=== PATIENT | female | born 1970 | race Caucasian/White ===

== ENCOUNTER 2017-12-20 14:12 | Emergency (ER) | payer MEDICAID ==
[2017-12-20] MEDS ORDERED: Lidocaine 1% 20 ML MDV INJECT ONE (14:58)
--- NOTE | 2017-12-20 14:59 | EDM.PDOC ---
ED HPI GENERAL MEDICAL PROBLEM - General Chief Complaint: Laceration Stated Complaint: LEFT POINTER FINGER CUT Time Seen by Provider: 12/20/17 14:41 Source of Information: Reports: Patient History Limitations: Reports: No Limitations - History of Present Illness INITIAL COMMENTS - FREE TEXT/NARRATIVE: History of present illness: []Patient was cutting a bag of turkey and sliced her left finger. She felt it cut down to the bone. Review of systems: As per history of present illness and below otherwise all systems reviewed and negative. Past medical history: As per history of present illness and as reviewed below otherwise noncontributory. Surgical history: As per history of present illness and as reviewed below otherwise noncontributory. Social history: No reported history of drug or alcohol abuse. Family history: As per history of present illness and as reviewed below otherwise noncontributory. Physical exam: General: Well developed, well nourished in NAD HEENT: Atraumatic, normocephalic, pupils reactive, negative for conjunctival pallor or scleral icterus, mucous membranes moist, throat clear, neck supple, nontender, trachea midline. Lungs: Clear to auscultation, breath sounds equal bilaterally, chest nontender. Heart: S1S2, regular, negative for clicks, rubs, or JVD. Abdomen: Soft, nondistended, nontender. Negative for masses or hepatosplenomegaly. Negative for costovertebral tenderness. Pelvis: Stable nontender. Genitourinary: Deferred. Rectal: Deferred. Extremities: Left dorsal index finger with laceration approximately 4 cm crossing to joints, negative for cords or calf pain. Neurovascular unremarkable. Neuro: Awake, alert, oriented. Cranial nerves II through XII unremarkable. Cerebellum unremarkable. Motor and sensory unremarkable throughout. Exam nonfocal. Diagnostics: []X-ray negative for fracture Therapeutics: []Tetanus updated, wounds sutured Impression: []Left index finger laceration Plan: []Sutures out in 10 days, Tylenol Motrin for pain where splint for 1 week return if symptoms worsen or change. Definitive disposition and diagnosis as appropriate pending reevaluation and review of above. Left 2-Index finger Pain Score (Numeric/FACES): 8 - Related Data Allergies Allergy/AdvReac Type Severity Reaction Status Date / Time azithromycin [From Zithromax] Allergy Other Verified 12/20/17 14:54 Home Meds: Home Meds . [No Known Home Meds] 12/20/17 [History] ED ROS GENERAL - Review of Systems Review Of Systems: See Below (See history of present illness) ED EXAM, SKIN/RASH Exam: See Below (See history of present illness) ED SKIN PROCEDURES - Laceration/Wound Repair Left Finger Lac/Wound length In cm: 4 Appearance: Subcutaneous Distal NVT: Neuro & Vascular Intact Anesthetic Type: Digital Local Anesthesia - Lidocaine (Xylocaine): 0.5% Plain Local Anesthesia - Bupivicaine (Marcaine): 0.5% Plain Local Anesthetic Volume: 3cc Exploration/Debridement/Repair: Wound Explored Closed with: Sutures Suture Size: other (5.0) # of Sutures: 7 Suture Type: Nylon Drain Placement: No Sterile Dressing Applied: Nurse Tetanus Status Addressed: Yes Complications: No Course - Vital Signs Last Recorded V/S: Last Vital Signs Temp 97.9 F 12/20/17 14:55 Pulse 66 12/20/17 14:55 Resp 18 12/20/17 14:55 BP 135/96 H 12/20/17 14:55 Pulse Ox 96 12/20/17 14:55 - Orders/Labs/Meds Orders: Active Orders 24 hr Category Date Time Status Vaccines to be Administered [RC] PER UNIT ROUTINE Care 12/20/17 15:01 Active Fingers Second Digit Lt F1 [CR] Stat Exams 12/20/17 15:04 Taken Meds: Medications Discontinued Medications Generic Name Dose Route Start Last Admin Trade Name Freq PRN Reason Stop Dose Admin Bupivacaine HCl 10 ml 12/20/17 15:00 Sensorcaine-Mpf 0.5% INJECT 12/20/17 15:01 ONETIME ONE Diphtheria/Tetanus/Acell Pertussis 0.5 ml 12/20/17 15:01 12/20/17 15:15 Adacel IM 12/20/17 15:02 0.5 ml .ONCE ONE Administration Lidocaine HCl 20 ml 12/20/17 14:58 Xylocaine 1% INJECT 12/20/17 14:59 ONETIME ONE Departure - Departure Time of Disposition: 15:56 Disposition: Home, Self-Care 01 Condition: Good Clinical Impression: Laceration of left index finger Qualifiers: Encounter type: initial encounter Damage to nail status: without damage Foreign body presence: without foreign body Qualified Code(s): S61.211A - Laceration without foreign body of left index finger without damage to nail, initial encounter - Discharge Information Referrals: Salo Weinberg MD [Primary Care Provider] - Forms: ED Department Discharge Additional Instructions: The following information is given to patients seen in the emergency department who are being discharged to home. This information is to outline your options for follow-up care. We provide all patients seen in our emergency department with a follow-up referral. The need for follow-up, as well as the timing and circumstances, are variable depending upon the specifics of your emergency department visit. If you don't have a primary care physician on staff, we will provide you with a referral. We always advise you to contact your personal physician following an emergency department visit to inform them of the circumstance of the visit and for follow-up with them and/or the need for any referrals to a consulting specialist. The emergency department will also refer you to a specialist when appropriate. This referral assures that you have the opportunity for follow-up care with a specialist. All of these measure are taken in an effort to provide you with optimal care, which includes your follow-up. Under all circumstances we always encourage you to contact your private physician who remains a resource for coordinating your care. When calling for follow-up care, please make the office aware that this follow-up is from your recent emergency room visit. If for any reason you are refused follow-up, please contact the [facility] Emergency Department at and asked to speak to the emergency department charge nurse. Sutures out in 7-10 days follow-up with regular physician as needed return if any redness, drainage or increased pain or fevers occur. [facility] [address] [place] [id number] - My Orders Last 24 Hours: My Active Orders 12/20/17 15:01 Vaccines to be Administered [RC] PER UNIT ROUTINE 12/20/17 15:04 Fingers Second Digit Lt F1 [CR] Stat - Assessment/Plan Last 24 Hours: My Active Orders 12/20/17 15:01 Vaccines to be Administered [RC] PER UNIT ROUTINE 12/20/17 15:04 Fingers Second Digit Lt F1 [CR] Stat
[2017-12-20] MEDS ORDERED: Bupivacaine 0.5% 10 ML SDV INJECT ONE (15:00)
[2017-12-20] MEDS ORDERED: Diphtheria,Pertussis(Acell),Tetanus Vaccine 0.5 ML Syringe IM ONE (15:01)
[2017-12-20] MEDS ORDERED: Bacitracin Oint 1 GM U/D Packet ONE (16:00)
[2017-12-20] MEDS ORDERED: Bacitracin Oint 1 GM U/D Packet TOP ONE (16:06)
--- NOTE | 2017-12-21 13:33 | CR ---
EXAM DATE: 12/20/17 PATIENT'S AGE: 47 Patient: PATRICIO LEE Facility: [place], [place] : 1970 Study: XRay Extremity Left 2nd digit [id number] 3:28:28 PM Ordering Physician: Karan Betancourt Final Report: INDICATION: Second digit. TECHNIQUE: Three views left index finger. FINDINGS: Moderate soft tissue swelling left index finger. Soft tissue deformity dorsal distal aspect of the left index finger likely the site of laceration. No opaque foreign body. No fracture or dislocation. Degenerative arthritis visualized left hand and wrist. Tiny chronic ossific densities along the radial aspect of the left 2nd PIP joint. Remainder negative. Dictated by Rm Briseno MD @ Dec 20 2017 3:30PM Signed by: Rm Briseno @ 12/20/2017 3:33:54 PM (Electronic Signature) ----ADDENDUM---- INDICATION: Cut to second digit. ZHANG Santos/constanza @ 3:48 p.m. on 12/20/2017 (Electronic Signature) Report Signed by Proxy. KELLY
== END 2017-12-20 16:10 | disposition home or self-care (01) ==
LOC: MW.ED 14:12
DX: S61.211A Laceration without foreign body of left index finger without damage to nail, initial encounter (principal); Z88.1 Allergy status to other antibiotic agents; Z23 Encounter for immunization; W45.8XXA Other foreign body or object entering through skin, initial encounter
CPT/HCPCS: 12002; 73140-26-F1; 73140-F1; 90471; 90715; 99282; 99283-25

== ENCOUNTER 2018-04-08 23:39 | Emergency (ER) | payer MEDICAID ==
[2018-04-08] MEDS ORDERED: Ketorolac 60 MG/2 ML SDV IM ONE (23:52)
[2018-04-08] MEDS ORDERED: LORazepam 1 MG Tab PO ONE (23:53)
[2018-04-08] MEDS ORDERED: Ondansetron 4 MG Tab.DIS PO ONE (23:53)
--- NOTE | 2018-04-09 00:25 | EDM.PDOC ---
ED HPI GENERAL MEDICAL PROBLEM - General Chief Complaint: General Stated Complaint: HEADACHE Time Seen by Provider: 04/08/18 23:46 Source of Information: Reports: Patient History Limitations: Reports: No Limitations - History of Present Illness INITIAL COMMENTS - FREE TEXT/NARRATIVE: HISTORY AND PHYSICAL: History of present illness: 39-year-old female presented to emergency department with chief complaint of anxiety starting today at 10:30 AM with associated headache. Patient states she has a history of anxiety and this morning at 10:30 began to have increasing anxiety. States that when she gets really bad anxiety she also gets a headache. She states that it is not a migraine and is not thunderclap. She denies any altered mental status associated with the headache. Initial neuro exam is nonfocal. She currently denies any chest pain, palpitations, shortness breath, syncopal episodes, or focal neurologic deficits. Review of systems: As per history of present illness and below otherwise all systems reviewed and negative. Past medical history: As per history of present illness and as reviewed below otherwise noncontributory. Surgical history: As per history of present illness and as reviewed below otherwise noncontributory. Social history: No reported history of drug or alcohol abuse. Family history: As per history of present illness and as reviewed below otherwise noncontributory. Physical exam: HEENT: Atraumatic, normocephalic, pupils reactive, negative for conjunctival pallor or scleral icterus, mucous membranes moist, throat clear, neck supple, nontender, trachea midline. Lungs: Clear to auscultation, breath sounds equal bilaterally, chest nontender. Heart: S1S2, regular, negative for clicks, rubs, or JVD. Abdomen: Soft, nondistended, nontender. Negative for masses or hepatosplenomegaly. Negative for costovertebral tenderness. Pelvis: Stable nontender. Genitourinary: Deferred. Rectal: Deferred. Extremities: Atraumatic, negative for cords or calf pain. Neurovascular unremarkable. Neuro: Awake, alert, oriented. Cranial nerves II through XII unremarkable. Cerebellum unremarkable. Motor and sensory unremarkable throughout. Exam nonfocal. Diagnostics: Therapeutics: 1 mg Ativan by mouth, Impression: Anxiety attack tension headache Plan: Patient was given 1 mg Ativan which seemed to improve her anxiety and headache. After giving the medication she wished for no further testing and be discharged back home so she can go to bed. As above exam was benign with no focal deficits. Her symptoms are most likely related to anxiety attack which she has a history of. She was discharged in good condition with instructions to follow- up with her primary care provider. She was also told to return to emergency department if she had any new or worsening symptoms. Patient was not given Toradol secondary to her stating that she was allergic to it. Definitive disposition and diagnosis as appropriate pending reevaluation and review of above. head Pain Score (Numeric/FACES): 10 - Related Data Allergies Allergy/AdvReac Type Severity Reaction Status Date / Time acetaminophen [From Vicodin] Allergy Hives Verified 04/08/18 23:54 azithromycin [From Zithromax] Allergy Itching Verified 04/08/18 23:53 codeine Allergy Hives Verified 04/08/18 23:54 erythromycin base Allergy Rash Verified 04/08/18 23:54 hydrocodone [From Vicodin] Allergy Hives Verified 04/08/18 23:54 lamotrigine [From Lamictal] Allergy Other Verified 04/08/18 23:54 morphine Allergy Hives Verified 04/08/18 23:54 Home Meds: Home Meds . [No Known Home Meds] 12/20/17 [History] Past Medical History - Past Health History Medical/Surgical History: Denies Medical/Surgical History [employer] History: Reports: , Other (See Below) Other [employer] History: Breast sx Musculoskeletal History: Reports: Back Pain, Chronic - Infectious Disease History Infectious Disease History: Reports: Hepatitis C - Past Surgical History Female Surgical History: Reports: Section Musculoskeletal Surgical History: Reports: Other (See Below) Other Musculoskeletal Surgeries/Procedures:: back sx Social & Family History - Family History Family Medical History: Noncontributory - Tobacco Use Smoking Status *Q: Current Every Day Smoker Years of Tobacco use: 39 Packs/Tins Daily: 1 - Caffeine Use Caffeine Use: Reports: Other - Recreational Drug Use Recreational Drug Use: Yes Drug Use in Last 12 Months: Yes Recreational Drug Type: Reports: Marijuana/Hashish Recreational Drug Use Frequency: Socially ED ROS GENERAL - Review of Systems Review Of Systems: ROS reveals no pertinent complaints other than HPI. ED EXAM, GENERAL - Physical Exam Exam: See Below Course - Vital Signs Last Recorded V/S: Last Vital Signs Temp 96.1 F 04/08/18 23:39 Pulse 72 04/08/18 23:39 Resp 28 H 04/08/18 23:39 BP 145/88 H 04/08/18 23:39 Pulse Ox 96 04/08/18 23:39 - Orders/Labs/Meds Meds: Medications Discontinued Medications Generic Name Dose Route Start Last Admin Trade Name Alex PRN Reason Stop Dose Admin Ketorolac Tromethamine 60 mg 04/08/18 23:52 04/09/18 00:11 Toradol IM 04/08/18 23:53 Not Given ONETIME ONE Lorazepam 1 mg 04/08/18 23:53 04/08/18 23:59 Ativan PO 04/08/18 23:54 1 mg ONETIME ONE Administration Ondansetron HCl 4 mg 04/08/18 23:53 04/08/18 23:59 Zofran Odt PO 04/08/18 23:54 4 mg ONETIME ONE Administration Departure - Departure Time of Disposition: 00:42 Disposition: Home, Self-Care 01 Condition: Good Clinical Impression: Anxiety attack - Discharge Information Referrals: PCP,None [Primary Care Provider] - Forms: ED Department Discharge Additional Instructions: My general discharge The following information is given to patients seen in the emergency department who are being discharged to home. This information is to outline your options for follow-up care. We provide all patients seen in our emergency department with a follow-up referral. The need for follow-up, as well as the timing and circumstances, are variable depending upon the specifics of your emergency department visit. If you don't have a primary care physician on staff, we will provide you with a referral. We always advise you to contact your personal physician following an emergency department visit to inform them of the circumstance of the visit and for follow-up with them and/or the need for any referrals to a consulting specialist. The emergency department will also refer you to a specialist when appropriate. This referral assures that you have the opportunity for follow-up care with a specialist. All of these measure are taken in an effort to provide you with optimal care, which includes your follow-up. Under all circumstances we always encourage you to contact your private physician who remains a resource for coordinating your care. When calling for follow-up care, please make the office aware that this follow-up is from your recent emergency room visit. If for any reason you are refused follow-up, please contact the [facility] Emergency Department at and asked to speak to the emergency department charge nurse. [facility] [address] [place] [address] [id number] [address] [address] Follow-up with a primary care provider as we discussed. Return the emergency Department if you have any new or worsening symptoms.
== END 2018-04-09 00:55 | disposition home or self-care (01) ==
LOC: MW.ED 23:39
DX: F41.9 Anxiety disorder, unspecified (principal); G44.209 Tension-type headache, unspecified, not intractable; F17.210 Nicotine dependence, cigarettes, uncomplicated; Z88.1 Allergy status to other antibiotic agents; Z88.5 Allergy status to narcotic agent; Z88.8 Allergy status to other drugs, medicaments and biological substances
CPT/HCPCS: 99283; A9270

== ENCOUNTER 2019-04-22 13:08 | Emergency (ER) | payer MEDICAID, OTHER ==
--- NOTE | 2019-04-22 13:16 | EDM.PDOC ---
ED HPI GENERAL MEDICAL PROBLEM - General Chief Complaint: General Stated Complaint: INJURED ANKLE Time Seen by Provider: 04/22/19 13:13 Source of Information: Reports: Patient History Limitations: Reports: No Limitations - History of Present Illness INITIAL COMMENTS - FREE TEXT/NARRATIVE: HISTORY AND PHYSICAL: History of present illness: Patient is a 48-year-old female who presents to the emergency room with multiple complaints post fall. She states she was walking into coming go when she tripped upwards on the ledge falling on her left elbow and bilateral knees. She denies hitting her head or any LOC. She states she has some mid lumbar back and neck pain, which is concerning to her as she has had previous lumbar spine surgery. He is complaining of left elbow and left ankle pain with soft tissue swelling. She was ambulatory into the emergency room and able to weight bear. Patient denies any fever, chills, headache, change in vision, syncope or near syncope. Denies any chest pain, shortness of breath or cough. Denies any abdominal pain, nausea, vomiting, diarrhea, constipation or dysuria. Patient has been eating and drinking appropriately. Review of systems: As per history of present illness and below otherwise all systems reviewed and negative. Past medical history: As per history of present illness and as reviewed below otherwise noncontributory. Surgical history: As per history of present illness and as reviewed below otherwise noncontributory. Social history: See social history for further information Family history: As per history of present illness and as reviewed below otherwise noncontributory. Physical exam: General: Well-developed and well-nourished 48-year-old female. Alert and oriented. Nontoxic appearing and in no acute distress. HEENT: Atraumatic, normocephalic, pupils equal and reactive bilaterally, negative for conjunctival pallor or scleral icterus, mucous membranes moist, trachea midline. No drooling or trismus noted. No meningeal signs. No hot potato voice noted. Lungs: Clear to auscultation, breath sounds equal bilaterally, chest nontender. Heart: S1S2, regular rate and rhythm without overt murmur Abdomen: Soft, nondistended, nontender. Negative for masses or hepatosplenomegaly. Negative for costovertebral tenderness. Pelvis: Stable nontender. Skin: Intact, warm, dry. No lesions or rashes noted. C-spine/Back: No pinpoint vertebral tenderness upon palpation. No crepitus, step -offs or obvious deformities. Paraspinous muscular tenderness to the left cervical spine and upper lumbar paraspinous muscular tenderness bilaterally. Patient is ambulatory into the emergency room without difficulty or deficit. Able to rock back on heels and walk on toes. Denies any urinary or fecal incontinence. Denies any numbness, tingling or saddle paresthesia. Extremities: Patient is ambulatory into the emergency room. She does complain of tenderness with palpation over the left elbow and left ankle. Minimal soft tissue swelling noted over the left ankle. States she has generalized tenderness throughout while performing my physical examination. Moves all extremities per self without difficulty or deficits, negative for cords or calf pain. Strong distal pulses bilaterally. Capillary refill less than 3 seconds. Neurovascular unremarkable. Neuro: Awake, alert, oriented. Cranial nerves II through XII unremarkable. Cerebellum unremarkable. Motor and sensory unremarkable throughout. Exam nonfocal. Notes: Patient declines any form of pain medication at this time. Patient denies any chance of as she does have a Mirena IUD. Declines testing before imaging. Patient has multiple vague complaints of injury due to this standing height fall. She states that the Al[place] area of concern is her neck, lumbar back, left elbow and left ankle. Imaging results are unremarkable. She does have some moderate L4-L5 and L5-S1 disc degenerative disease. I will provide her with a sling for comfort of the left elbow. Vital signs remain stable. Supportive care measures were reviewed and discussed. Voices understanding and is agreeable to plan of care. Denies any further questions or concerns at this time. Diagnostics: X-ray cervical spine, lumbar spine, left elbow, left ankle Therapeutics: Sling Prescription: Diclofenac (#20) Impression: Fall Left elbow injury Left ankle injury Plan: 1. Rest, ice, elevate the affected extremity. Please wear the sling as directed. 2. Tylenol and/or Ibuprofen as needed for pain management. 3. Follow up with the Orthopedic provider as we discussed. Return to the ED as needed and as discussed. Definitive disposition and diagnosis as appropriate pending reevaluation and review of above. Onset: Today Duration: Minutes: - Related Data Allergies Allergy/AdvReac Type Severity Reaction Status Date / Time acetaminophen [From Vicodin] Allergy Hives Verified 09/06/18 17:29 azithromycin [From Zithromax] Allergy Itching Verified 09/06/18 17:29 bee venom protein (honey bee) Allergy Other Verified 04/22/19 13:26 codeine Allergy Hives Verified 09/06/18 17:29 erythromycin base Allergy Rash Verified 09/06/18 17:29 hydrocodone [From Vicodin] Allergy Hives Verified 09/06/18 17:29 ketorolac [From Toradol] Allergy Rash Verified 09/06/18 17:29 lamotrigine [From Lamictal] Allergy Other Verified 09/06/18 17:29 latex Allergy Other Verified 04/22/19 13:26 morphine Allergy Hives Verified 09/06/18 17:29 tramadol Allergy Rash Verified 09/06/18 17:29 Home Meds: Home Meds . 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: , Other (See Below) Other REGULATORY AFFAIRS ANALYST History: Breast sx Musculoskeletal History: Reports: Back Pain, Chronic Psychiatric History: Reports: Addiction, Anxiety, Depression - Infectious Disease History Infectious Disease History: Reports: Chicken Pox, Hepatitis C - Past Surgical History Female Surgical History: Reports: Section Musculoskeletal Surgical History: Reports: Other (See Below) Other Musculoskeletal Surgeries/Procedures:: back sx Social & Family History - Family History Family Medical History: Noncontributory - Caffeine Use Caffeine Use: Reports: Other ED ROS GENERAL - Review of Systems Review Of Systems: ROS reveals no pertinent complaints other than HPI. ED EXAM, GENERAL - Physical Exam Exam: See Below (See dictation) Course - Vital Signs Last Recorded V/S: Last Vital Signs Temp 97.2 F 04/22/19 13:23 Pulse 86 04/22/19 13:23 Resp 18 04/22/19 13:23 BP 138/85 04/22/19 13:23 Pulse Ox 95 04/22/19 13:23 - Orders/Labs/Meds Orders: Active Orders 24 hr Category Date Time Status Pelvis 1V or 2V [CR] Stat Exams 04/22/19 13:35 Taken Departure - Departure Time of Disposition: 14:45 Disposition: Home, Self-Care 01 Clinical Impression: Fall Qualifiers: Encounter type: initial encounter Qualified Code(s): W19.XXXA - Unspecified fall, initial encounter Left ankle injury Qualifiers: Encounter type: initial encounter Qualified Code(s): S99.912A - Unspecified injury of left ankle, initial encounter Injury of left elbow Qualifiers: Encounter type: initial encounter Qualified Code(s): S59.902A - Unspecified injury of left elbow, initial encounter - Discharge Information Referrals: PCP,Unknown [Primary Care Provider] - Forms: ED Department Discharge Additional Instructions: The following information is given to patients seen in the emergency department who are being discharged to home. This information is to outline your options for follow-up care. We provide all patients seen in our emergency department with a follow-up referral. The need for follow-up, as well as the timing and circumstances, are variable depending upon the specifics of your emergency department visit. If you don't have a primary care physician on staff, we will provide you with a referral. We always advise you to contact your personal physician following an emergency department visit to inform them of the circumstance of the visit and for follow-up with them and/or the need for any referrals to a consulting specialist. The emergency department will also refer you to a specialist when appropriate. This referral assures that you have the opportunity for follow-up care with a specialist. All of these measure are taken in an effort to provide you with optimal care, which includes your follow-up. Under all circumstances we always encourage you to contact your private physician who remains a resource for coordinating your care. When calling for follow-up care, please make the office aware that this follow-up is from your recent emergency room visit. If for any reason you are refused follow-up, please contact the [facility] Emergency Department at and asked to speak to the emergency department charge nurse. [facility] [address] [place] [id number] [facility] [address] [place] [id number] 1. Rest, ice, elevate the affected extremity. Please wear the sling as directed. 2. Tylenol and/or Ibuprofen as needed for pain management. 3. Follow up with the Orthopedic provider as we discussed. Return to the ED as needed and as discussed. - My Orders Last 24 Hours: My Active Orders 04/22/19 13:35 Pelvis 1V or 2V [CR] Stat - Assessment/Plan Last 24 Hours: My Active Orders 04/22/19 13:35 Pelvis 1V or 2V [CR] Stat
--- NOTE | 2019-04-22 15:01 | CR ---
Indication: Injury and pain Technique: Left ankle 3 views. Comparison: None Findings: Bones: Alignment is normal. No fractures or bone lesions. Joint spaces: Unremarkable. Soft tissues: Unremarkable. Impression: No sign of acute injury. Dictated by Benito Renteria MD @ Apr 22 2019 2:58PM Signed by Dr. Benito Renteria @ Apr 22 2019 2:59PM
--- NOTE | 2019-04-22 15:01 | CR ---
Indication: Injury and pain Technique: Left foot 3 views. Comparison: None Findings: Bones: Alignment is normal. No fractures or bone lesions. Joint spaces: Unremarkable. Soft tissues: Unremarkable. Impression: No sign of acute injury. Dictated by Benito Renteria MD @ Apr 22 2019 2:58PM Signed by Dr. Benito Renteria @ Apr 22 2019 3:00PM
--- NOTE | 2019-04-22 15:11 | CR ---
INDICATION: Pain after tripping on the sidewalk. COMPARISON: None available. FINDINGS: The cervical spine was examined with AP, lateral and open mouth views for a total of three views. The cervical vertebral bodies and disc spaces are normal in height. The vertebral bodies are in anatomic alignment with no sign of fracture or subluxation. The prevertebral soft tissues are normal in appearance with no sign of swelling. The airway structures are normal in appearance. IMPRESSION: Normal cervical spine three views. Dictated by Carl Cordero MD @ Apr 22 2019 3:09PM Signed by Dr. Carl Cordero @ Apr 22 2019 3:10PM
--- NOTE | 2019-04-22 15:13 | CR ---
HISTORY: Pain after tripping on the sidewalk. COMPARISON: Report of the CT of the abdomen and pelvis from 09/06/2018. FINDINGS: The lumbar spine was examined with AP, lateral, and lateral spot views for a total of three views. There is no sign of fracture or subluxation. The vertebral bodies are normal in height and they are in anatomic alignment. There is moderate L4-5 and L5-S1 disc degenerative disease with vacuum disc degeneration and anterior osteophytes. This appearance is similar to that described on the previous CT. The rest of the intervertebral discs are normal in height. The visualized bony pelvis and bowel gas pattern are normal in appearance. IMPRESSION: No sign of acute injury to the lumbar spine. Moderate L4-5 and L5-S1 disc degenerative disease. Dictated by Carl Cordero MD @ Apr 22 2019 3:09PM Signed by Dr. Carl Cordero @ Apr 22 2019 3:12PM
--- NOTE | 2019-04-22 15:16 | CR ---
HISTORY: Left hip pain after tripping on sidewalk. COMPARISON: Report of the CT of the pelvis from 09/06/2018. FINDINGS: A single AP view of the pelvis shows no sign of fracture or dislocation. The hips are normal in appearance with no significant degenerative changes. The inferior lumbar spine is normal in appearance. A T-shaped intrauterine device is in satisfactory position in the midline of the mid pelvis. A 1 centimeter rounded calcification is seen in the left mid pelvis which could be in the fecal stream. This also could be a calcified pelvic lymph node. The soft tissues of the pelvis are otherwise unremarkable. IMPRESSION: No sign of acute osseous injury to the pelvis or left hip. Satisfactory positioning of an intrauterine device. Dictated by Carl Cordero MD @ Apr 22 2019 3:09PM Signed by Dr. Carl Cordero @ Apr 22 2019 3:15PM
== END 2019-04-22 15:23 | disposition home or self-care (01) ==
LOC: MW.ED 13:08
DX: S99.912A Unspecified injury of left ankle, initial encounter (principal); S59.902A Unspecified injury of left elbow, initial encounter; F17.210 Nicotine dependence, cigarettes, uncomplicated; Z88.6 Allergy status to analgesic agent; Z88.1 Allergy status to other antibiotic agents; Z91.030 Bee allergy status; Z88.5 Allergy status to narcotic agent; Z88.8 Allergy status to other drugs, medicaments and biological substances; Z91.040 Latex allergy status; W01.0XXA Fall on same level from slipping, tripping and stumbling without subsequent striking against object, initial encounter
CPT/HCPCS: 72040; 72040-26; 72100; 72100-26; 72170; 72170-26; 73080-26-LT; 73080-LT; 73610-26-LT; 73610-LT; 99283-25; 99284

== ENCOUNTER 2019-09-04 18:31 | Emergency (ER) | payer SELFPAY ==
[2019-09-04] MEDS ORDERED: Acetaminophen 500 MG Tab PO ONE (19:47)
--- NOTE | 2019-09-04 19:51 | EDM.PDOC ---
ED HPI GENERAL MEDICAL PROBLEM - General Chief Complaint: Upper Extremity Injury/Pain Stated Complaint: LEFT WRIST /ARM PAIN Time Seen by Provider: 09/04/19 19:43 - History of Present Illness INITIAL COMMENTS - FREE TEXT/NARRATIVE: HISTORY AND PHYSICAL: History of present illness: The patient is a 49-year-old female resents with complaints of pain to her left hand that radiates to her wrist and upper arm after falling out of the bed last evening while having sexual intercourse. The patient is unsure how she fell on her hand as she was drinking alcohol last evening but that she did not hit her head or neck and has no head neck or back pain and did not pass out or blackout. She is right-hand dominant and she tried to take [id number] Aleve and Excedrin at home and ice the hand and is not improving so she is here for evaluation due to concerns. She has no proximal elbow humerus or shoulder pain and no other injuries as a result of this mild fall. She says that her fingers are numb and tingling but she has not been able to move them very much but her fingers specifically do not hurt and most of her pain is localized to the dorsal aspect of her hand near the third and fourth metacarpals. Review of systems: As per history of present illness and below otherwise all systems reviewed and negative. Past medical history: As per history of present illness and as reviewed below otherwise noncontributory. Surgical history: As per history of present illness and as reviewed below otherwise noncontributory. Social history: No reported history of drug or alcohol abuse. Family history: As per history of present illness and as reviewed below otherwise noncontributory. Physical exam: General: Well-developed well-nourished female who is nontoxic and vital signs are noted by me. HEENT: Atraumatic, normocephalic, pupils reactive, negative for conjunctival pallor or scleral icterus, mucous membranes moist, throat clear, neck supple, nontender, trachea midline. Lungs: Clear to auscultation, breath sounds equal bilaterally, chest nontender. Heart: S1S2, regular rate and rhythm no overt murmurs Abdomen: Soft, nondistended, nontender. Negative for masses or hepatosplenomegaly. Negative for costovertebral tenderness. Pelvis: Stable nontender. Genitourinary: Deferred. Rectal: Deferred. Extremities: Atraumatic and full range of motion of all extremities with the exception of the left hand where there is diffuse swelling on the dorsal aspect of the hand near the third through fifth metacarpals as well as swelling and ecchymosis seen on the palmar surface in the same location. The distal fingers have some dependent swelling but there is no tenderness defects or deformities to the fingers throughout and the patient can wiggle and flex and extend the fingers with discomfort. The proximal wrist forearm elbow shoulder and clavicle are all intact without tenderness defects or deformities or soft tissue swelling. There is normal capillary refill distally in the fingers and good pulses throughout the extremity. The legs are, negative for cords or calf pain. Neurovascular unremarkable. Neuro: Awake, alert, oriented. Cranial nerves II through XII unremarkable. Cerebellum unremarkable. Motor and sensory unremarkable throughout. Exam nonfocal. Diagnostics: X-ray left hand and wrist Therapeutics: The patient has multiple allergies and does not want any medication other than plain Tylenol for the discomfort. Initially Tylenol is listed as an allergy but she says she is not allergic to it she is allergic to the hydrocodone within the Vicodin. Generous ulnar gutter splint was placed nursing and a sling was also applied. 2041: This case was discussed with a hand specialist at [facility], Dr. Bustillo and he is aware that the patient will be calling for follow-up appointment. The patient was given his office number and told to call first thing in the morning making sure that she says to the office that Dr. Bustillo and he was notified. Pain management at home will be challenging and I will discuss with her if there are any other options stronger than Tylenol and prescribed as she chooses. Impression: 4th Metacarpal fracture left hand Definitive disposition and diagnosis as appropriate pending reevaluation and review of above. left hand Pain Score (Numeric/FACES): 8 - Related Data Allergies Allergy/AdvReac Type Severity Reaction Status Date / Time acetaminophen [From Vicodin] Allergy Hives Verified 09/04/19 19:58 azithromycin [From Zithromax] Allergy Itching Verified 09/04/19 19:42 bee venom protein (honey bee) Allergy Other Verified 09/04/19 19:42 codeine Allergy Hives Verified 09/04/19 19:42 erythromycin base Allergy Rash Verified 09/04/19 19:42 hydrocodone [From Vicodin] Allergy Hives Verified 09/04/19 19:42 ketorolac [From Toradol] Allergy Rash Verified 09/04/19 19:42 lamotrigine [From Lamictal] Allergy Other Verified 09/04/19 19:42 latex Allergy Other Verified 09/04/19 19:42 morphine Allergy Hives Verified 09/04/19 19:42 tramadol Allergy Rash Verified 09/04/19 19:42 Home Meds: Home Meds . [No Known Home Meds] 12/20/17 [History] Past Medical History - Past Health History Medical/Surgical History: Denies Medical/Surgical History Respiratory History: Reports: Asthma CHILD WELFARE SPECIALIST History: Reports: , Other (See Below) Other CHILD WELFARE SPECIALIST History: Breast sx Musculoskeletal History: Reports: Back Pain, Chronic Psychiatric History: Reports: Addiction, Anxiety, Depression - Infectious Disease History Infectious Disease History: Reports: None - Past Surgical History Female Surgical History: Reports: Section Musculoskeletal Surgical History: Reports: Other (See Below) Other Musculoskeletal Surgeries/Procedures:: back sx Social & Family History - Family History Family Medical History: Noncontributory - Tobacco Use Smoking Status *Q: Current Every Day Smoker Years of Tobacco use: 35 Packs/Tins Daily: 1 - Caffeine Use Caffeine Use: Reports: None - Recreational Drug Use Recreational Drug Use: Yes Recreational Drug Type: Reports: Marijuana/Hashish Review of Systems - Review of Systems Review Of Systems: Comprehensive ROS is negative, except as noted in HPI. ED EXAM, GENERAL - Physical Exam Exam: See Below (see Dictation) Course - Vital Signs Last Recorded V/S: Last Vital Signs Temp 37.3 C 09/04/19 19:03 Pulse 80 09/04/19 19:03 Resp 16 09/04/19 19:03 BP 142/83 H 09/04/19 19:03 Pulse Ox 96 09/04/19 19:03 - Orders/Labs/Meds Orders: Active Orders 24 hr Category Date Time Status DME for Discharge [COMM] Stat Oth 09/04/19 20:43 Ordered Meds: Medications Discontinued Medications Generic Name Dose Route Start Last Admin Trade Name Freq PRN Reason Stop Dose Admin Acetaminophen 1,000 mg 09/04/19 19:47 09/04/19 20:00 Tylenol Extra Strength PO 09/04/19 19:48 1,000 mg ONETIME ONE Administration Departure - Departure Time of Disposition: 20:50 Disposition: Home, Self-Care 01 Condition: Good Clinical Impression: Fracture of metacarpal bone Qualifiers: Encounter type: initial encounter Metacarpal bone: fourth Fracture type: closed Metacarpal location: shaft Fracture alignment: displaced Laterality: left Qualified Code(s): S62.325A - Displaced fracture of shaft of fourth metacarpal bone, left hand, initial encounter for closed fracture - Discharge Information Referrals: Erasto Romeo DO [Primary Care Provider] - Forms: ED Department Discharge Additional Instructions: The following information is given to patients seen in the emergency department who are being discharged to home. This information is to outline your options for follow-up care. We provide all patients seen in our emergency department with a follow-up referral. The need for follow-up, as well as the timing and circumstances, are variable depending upon the specifics of your emergency department visit. If you don't have a primary care physician on staff, we will provide you with a referral. We always advise you to contact your personal physician following an emergency department visit to inform them of the circumstance of the visit and for follow-up with them and/or the need for any referrals to a consulting specialist. The emergency department will also refer you to a specialist when appropriate. This referral assures that you have the opportunity for followup care with a specialist. All of these measure are taken in an effort to provide you with optimal care, which includes your followup. Under all circumstances we always encourage you to contact your private physician who remains a resource for coordinating your care. When calling for followup care, please make the office aware that this follow-up is from your recent emergency room visit. If for any reason you are refused follow-up, please contact the emergency department at and ask to speak to the emergency department charge nurse. Dr Bustillo & Dr Reed [facility] [address] [place] [id number] Do not take off splint until you're followed up in the clinic by the hand specialist and call first thing in the morning to schedule a follow-up appointment with Dr. Bustillo oozing resources given to above. He was called this evening and is aware that you will be following up in the next 1-2 days. Ice and elevate the hand as much as possible and take pain medications. Return to ER as needed and as discussed Sepsis Event Note - Evaluation Sepsis Screening Result: No Definite Risk - Focused Exam Vital Signs: Vital Signs Temp Pulse Resp BP Pulse Ox 09/04/19 19:03 37.3 C 80 16 142/83 H 96 Date Exam was Performed: 09/04/19 Time Exam was Performed: 20:46 - My Orders Last 24 Hours: My Active Orders 09/04/19 20:43 DME for Discharge [COMM] Stat - Assessment/Plan Last 24 Hours: My Active Orders 09/04/19 20:43 DME for Discharge [COMM] Stat
--- NOTE | 2019-09-04 20:30 | CR ---
INDICATION: Hand pain following fall TECHNIQUE: Hand radiograph 3 views left COMPARISON: None FINDINGS: Bone: There is a mildly displaced oblique fracture of the 4th metacarpal present. 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 Mild osteoarthritis is seen at the 3rd through 5th DIP joint. Soft tissue: Unremarkable. No radiopaque foreign bodies are seen. IMPRESSION: 1. There is a mildly displaced oblique fracture of the 4th metacarpal present. Dictated by Alin Loaiza MD @ 09/04/2019 8:29:41 PM Dictated by: Alin Loaiza MD @ 09/04/2019 20:29:48 (Electronically Signed)
--- NOTE | 2019-09-04 20:30 | CR ---
INDICATION: Wrist pain following fall TECHNIQUE: Wrist radiograph 2 views left COMPARISON: None FINDINGS: Bone: No acute fractures or aggressive bone lesions are identified. Fracture of the 4th metacarpal is present discussed on separate report. Joint: The radiocarpal, carpal, and carpometacarpal joints are unremarkable in appearance. Soft tissue: Unremarkable. No radiopaque foreign bodies are seen. IMPRESSION: 1. No acute osseous injuries or abnormalities are noted. Dictated by Alin Loaiza MD @ 09/04/2019 8:28:47 PM Dictated by: Alin Loaiza MD @ 09/04/2019 20:28:56 (Electronically Signed)
== END 2019-09-04 21:05 | disposition home or self-care (01) ==
LOC: MW.ED 18:31
DX: S62.325A Displaced fracture of shaft of fourth metacarpal bone, left hand, initial encounter for closed fracture (principal); J45.909 Unspecified asthma, uncomplicated; F17.210 Nicotine dependence, cigarettes, uncomplicated; Z88.8 Allergy status to other drugs, medicaments and biological substances; Z91.030 Bee allergy status; Z88.1 Allergy status to other antibiotic agents; Z88.6 Allergy status to analgesic agent; Z91.040 Latex allergy status; Z88.5 Allergy status to narcotic agent; W06.XXXA Fall from bed, initial encounter
CPT/HCPCS: 29125; 73100; 73130; 99283; A9270